=== PATIENT | female | born 1955 | race Caucasian/White ===

== ENCOUNTER 2021-03-17 16:58 | Inpatient (IN) | payer MEDICARE ==
[~2021-03-17] VITALS: Ht 167.6 cm; Wt 57.2 kg
--- NOTE | 2021-03-17 17:27 | NUR ---
Dr Olson at the bedside for MSE.
[2021-03-17] MEDS ORDERED: CHLO25CA22 PO (17:36)
[2021-03-17] MEDS ORDERED: TRAZ-182 PO (17:36)
[2021-03-17 17:47] LABS: HEMATOCRIT 35.3 % (31.2-41.9); MEAN CORPUSCULAR HEMOGLOBIN 34.4 uug (24.7-32.8); PLATELET COUNT (AUTO) 436 K/uL (179-408)
[2021-03-17 17:52] LABS: CARBON DIOXIDE 32 mmol/L (21-32); CHLORIDE 98 mmol/L (98-107); CREATININE 1.1 mg/dL (0.6-1.3); GLUCOSE 130 mg/dL (74-106); POTASSIUM 3.3 mmol/L (3.5-5.1); UREA NITROGEN, BLOOD 10 mg/dL (7-18)
[2021-03-17 17:58] LABS: ALANINE AMINOTRANSFERASE 67 U/L (14-59); ALKALINE PHOSPHATASE 76 U/L (50-136); ASPARTATE AMINOTRANSFERASE 48 U/L (15-37); BILIRUBIN,DIRECT 0.2 mg/dL (0.0-0.2); BILIRUBIN,TOTAL 0.5 mg/dL (0.2-1.0); ETHANOL < 3 MG/DL (0-0); TOTAL PROTEIN, SERUM 7.7 g/dL (6.4-8.2)
[2021-03-17 17:59] LABS: ACETAMINOPHEN < 2.0 ug/mL (10-30)
[2021-03-17 18:03] LABS: BAND % (MANUAL) 5 % (0-10); EOSINOPHILS % (MANUAL) 1 % (0-8); LYMPHOCYTES % (MANUAL) 24 % (20-40); MONOCYTES % (MANUAL) 21 % (2-10); NEUTROPHILS % (MANUAL) 49 % (42-75)
--- NOTE | 2021-03-17 18:15 | NUR ---
Pt is medically cleared to be admitted to MHU.
--- NOTE | 2021-03-17 18:22 | NUR ---
Pt able to walk to bathroom w/ steady gait.
[2021-03-17 18:50] VITALS: BP 113/77
[2021-03-17] MEDS ORDERED: MAGNESIUM HYDROXIDE 30 ML LIQUID UDC PO PRN (20:00)
[2021-03-17] MEDS ORDERED: MAG HYDROX/AL HYDROX/SIMETH 30 ML LIQUID UDC PO PRN (20:00)
[2021-03-17] MEDS: LORAZEPAM 0.5 MG TABLET PO PRN (20:22)
[2021-03-17] MEDS ORDERED: BLOOD SUGAR DIAGNOSTIC 1 EACH STRIP VI ONE (20:30)
--- NOTE | 2021-03-17 21:00 | NUR ---
ADMISSION NOTE: ADMITTED EARLIER JUST BEFORE CHANGE OF SHIFT A 65 YEARS OLD FEMALE TO [facility] ON A 5150 FOR DTS. HOLD WILL END ON 03/19/21 AT 1410. PER HOLD, PATIENT LIVES AT HOME ALONE. SHE WAS TAKEN TO [facility] BY SISTER D/T A FALL AND EXCESSIVE ETOH ABUSE ON 03/16/21. ONCE PATIENT WAS MEDICALLY CLEARED SHE WAS TRANSPORTED VIA AMBULANCE TO [facility] FOR ADMISSION TO MHU, PER HOLD, PATIENT REPORTED H/O DEPRESSION AND ANXIETY. ON EVALUATION, PT ENDORSE SI AND DESIRED TO . SHE IS ALSO EXPERIENCING 5 DAYS SOBRIETY. UPON ADMISSION, PATIENT NOTED A/O X 3 ABLE TO AMBULATE WITH SLOW BUT STEADY GAIT. SHE IS NOTED GUARDED BUT COOPERATIVE WITH ADMISSION PROCESS. ON FACE TO FACE ASSESSMENT, PATIENT REFLECTS WHAT IS WRITTEN IN THE HOLD. SHE WAS GIVEN HER ADVISEMENT WELL HER BOOKLET FOR PATIENT'S RIGHT ON MENTAL HEALTH FACILITIES. SHE APPEARS TO MINIMIZE HER SYMPTOMS, SHE STATED, "I DON'T FEEL SUICIDAL, I DON'T WANT TO , I AM JUST DEPRESSED BECAUSE I AM ALL ALONE IN MY HOUSE". PATIENT ALSO ADMITTED DRINKING ALCOHOL IN ORDER TO COPE WITH HER DEPRESSION. SHE STATED THAT SHE LAST HAD AN ALCOHOLIC BEVERAGE 5 DAYS AGO. PATIENT IS ABLE TO VERBALLY CFS. ON BODY ASSESSMENT, PATIENT PRESENTS WITH MULTIPLE FACIAL BRUISES (LEFT SIDE OF FOREHEAD AND LEFT ORBITAL AREA). IT WAS ALSO NOTED AND ABRASION ON RT KNEE AND MULTIPLE BRUISES ON LOWER RIGHT LEG ANTERIOR ASPECT AND LEFT FOREARM LATER ASPECT. PATIENT IS UNDER THE CARE OF DR. PATEL. SHE WAS NOTIFIED OF PT ADMISSION. WILL CONTINUE WITH Q15 MIN CHECKS.
[2021-03-17] MEDS: TEMAZEPAM 7.5 MG CAPSULE PO PRN (22:17)
[2021-03-17] MEDS ORDERED: POTASSIUM CHLORIDE 20 MEQ TAB.PRT.SR PO ONE (23:45)
--- NOTE | 2021-03-18 00:05 | NUR ---
PATIENT NOTED WITH K AT 3.3. DR OATES WAS NOTIFIED AND A NEW ORDER OBTAINED TO ADMINISTER KDUR 20mEq ONE TIME ORDER, ORDER NOTED AND CARRIED OUT. WILL CONTINUE TO MONITOR.
[2021-03-18 07:30] VITALS: BP 120/65
--- NOTE | 2021-03-18 08:35 | NUR ---
Social Work Note/Substance Abuse Intervention: Patient was provided with a brief substance abuse intervention and referred to [facility] ([phone]), [facility] ([phone]), and [facility] ([phone]) for alcohol abuse.
--- NOTE | 2021-03-18 08:35 | NUR ---
FIREARMS REPORT: Cheese Grader completed and submitted a [employer] firearms report for 5150 grave disability certification. A copy of report has been placed in patient chart.
--- NOTE | 2021-03-18 09:34 | NUR ---
SW Family Contact: This SW contacted patient's sister Delfina Houston ([phone]) to discuss treatment and discharge plan. Patient's sister Delfina Houston ([phone]) stated that she is the DPOA and will send this SW documents. Sister Delfina stated she would want pt to return back home upon discharge and pt would want to return back home upon discharge.
--- NOTE | 2021-03-18 09:34 | NUR ---
GEETHA Initial Discharge Plan: Patient lives home alone at [address] [place] [address]; ([phone]). This SW contacted patient's sister Delfina Houston ([phone]) to discuss treatment and discharge plan. Patient's sister Delfina Houston ([phone]) stated that she is the DPOA and will send this SW documents. Sister Delfina stated she would want pt to return back home upon discharge and pt would want to return back home upon discharge. GEETHA will work with the treatment team and family to coordinate proper discharge.
[2021-03-18] MEDS: LORAZEPAM 0.5 MG TABLET PO PRN ×2 (09:58→17:03)
--- NOTE | 2021-03-18 10:08 | NUR ---
DPOA Document: This SW received DPOA document from patient's sister Delfina Houston who is the DPOA of pt.
--- NOTE | 2021-03-18 11:34 | NUR ---
Pt noted quite forgetful. Excessively at nurses station, making multiple requests, often same requests she asked for 10 minutes ago. Requires frequent redirection.
--- NOTE | 2021-03-18 13:16 | NUR ---
SW Note: Pt constantly entering social workers office and asking the same questions. Pt appears to be forgetful. SW had to re-direct pt multiple times.
--- NOTE | 2021-03-18 14:54 | NUR ---
Coordination of Care: Patient will follow up (Primary Doctor) Dr. Mathew Blanco located at [address], [place] [address]; ([phone]) on Monday, April 19, 2021 at 1:00 PM and will monitor and provide psychotropic medications.
[2021-03-18 15:34] VITALS: BP 134/71
--- NOTE | 2021-03-18 15:34 | NUR ---
SW Individual Therapy: This SW met with patient' to discuss patient's presenting problem SI. Patient stated she is not suicidal and is depressed. Patient expressed that she is currently moving to an apartment and has been stressing about her move. She expressed to this SW that she is also stressed about her ex-boyfriend and wants to move on, she expressed "I have changed my life multiple times for him". This SW actively listened and provided emotional support. This SW encouraged pt to develop strength.
[2021-03-18] MEDS ORDERED: PAROXETINE HCL 20 MG TABLET PO ONE (18:00)
[2021-03-18] MEDS: TRAZODONE 50 MG TABLET PO SCH (20:13)
[2021-03-18 20:14] VITALS: BP 163/96
[2021-03-18] MEDS: TEMAZEPAM 7.5 MG CAPSULE PO PRN (22:58)
[2021-03-19 00:17] VITALS: BP 142/77
[2021-03-19] MEDS: LORAZEPAM 0.5 MG TABLET PO PRN ×3 (01:03→15:49)
[2021-03-19] MEDS: ACETAMINOPHEN 325 MG TABLET PO PRN (01:03)
--- NOTE | 2021-03-19 05:28 | NUR ---
Received patient at the nurses station last night asking for Tea. This casualty underwriter was able to have a meaningful conversation with the patient. The patient expressed that she "drinks everyday" and the reason her face is black and blue is from "Falling down drunk." The patient said [place] and " Ex boyfriend". Patient is lonely and wants to move.When asked, the patient denies having SI at this time. Many times during the night the patient was up out of the bed asking for things. Total sleep was only 3.15 hours. At one point the room mate was yelling at the patient. This was because during the night, this patient did not like the roommates snoring ,so she walked over and started shaking the bed. The patient is impulsive at times , forgetful and has poor insight and judgement. Assistant Front Desk Manager and staff are continuing to monitor patient for safety and provide reassurance and active listening when needed.
[2021-03-19 07:54] LABS: HEMATOCRIT 32.8 % (31.2-41.9); MEAN CORPUSCULAR HEMOGLOBIN 34.8 uug (24.7-32.8); MEAN CORPUSCULAR VOLUME 102.5 fL (75.5-95.3); PLATELET COUNT (AUTO) 404 K/uL (179-408)
[2021-03-19 08:03] VITALS: BP 110/62
[2021-03-19 08:09] LABS: BILIRUBIN,DIRECT 0.2 mg/dL (0.0-0.2); BILIRUBIN,TOTAL 0.4 mg/dL (0.2-1.0); MAGNESIUM 1.6 mg/dL (1.8-2.4); PHOSPHOROUS 3.3 mg/dL (2.5-4.9); POTASSIUM 3.3 mmol/L (3.5-5.1); TOTAL PROTEIN, SERUM 6.8 g/dL (6.4-8.2)
[2021-03-19 08:24] LABS: THYROID STIMULATING HORMONE 1.383 mIU/mL (0.358-3.740)
[2021-03-19] MEDS ORDERED: MAGNESIUM OXIDE 400 MG TABLET PO ONE (09:15)
[2021-03-19] MEDS ORDERED: POTASSIUM CHLORIDE 20 MEQ TAB.PRT.SR PO ONE (09:15)
[2021-03-19] MEDS: MULTIVITAMINS,THERAPEUTIC TABLET PO SCH (12:21)
[2021-03-19] MEDS: THIAMINE HCL 100 MG TABLET PO SCH (12:21)
[2021-03-19 16:44] VITALS: BP 153/78
[2021-03-19 18:40] LABS: LYMPHOCYTES % (MANUAL) 34 % (20-40); MONOCYTES % (MANUAL) 16 % (2-10); NEUTROPHILS % (MANUAL) 50 % (42-75)
[2021-03-19 19:54] VITALS: BP 101/56
[2021-03-19] MEDS: TRAZODONE 50 MG TABLET PO SCH (21:05)
[2021-03-20] MEDS: THIAMINE HCL 100 MG TABLET PO SCH (08:00)
[2021-03-20] MEDS: MULTIVITAMINS,THERAPEUTIC TABLET PO SCH (08:00)
[2021-03-20] MEDS: LORAZEPAM 0.5 MG TABLET PO PRN ×3 (08:07→20:07)
[2021-03-20 08:11] VITALS: BP 119/67
[2021-03-20 16:17] VITALS: BP 144/72
--- NOTE | 2021-03-20 19:06 | NUR ---
PT EASILY IRRITABLE, FORGETFUL, AND NEEDY AT TIMES. REQUIRES FREQUENT REDIRECTION. NO AGGRESSIVE OR COMBATIVE BEHAVIOR NOTED. ADMINISTERED ATIVAN REQUESTED FOR ANXIETY. DENIES SI AT THIS TIME.
--- NOTE | 2021-03-20 20:07 | NUR ---
Pt refused HS Paxil 20mg. States she only wants 10mg and will talk to doctor tomorrow.
[2021-03-20] MEDS ORDERED: PAROXETINE HCL 20 MG TABLET PO SCH (21:00)
[2021-03-21] MEDS: LORAZEPAM 0.5 MG TABLET PO PRN ×2 (06:35→18:41)
[2021-03-21 08:04] VITALS: BP 117/67
[2021-03-21] MEDS: THIAMINE HCL 100 MG TABLET PO SCH (08:23)
[2021-03-21] MEDS: MULTIVITAMINS,THERAPEUTIC TABLET PO SCH (08:23)
[2021-03-21] MEDS: PAROXETINE HCL 20 MG TABLET PO SCH (13:55)
--- NOTE | 2021-03-21 14:55 | NUR ---
Received patient alert and oriented x4,, compliant with Am medication ,seen and checked by Yaritza pagan and agree to take Paxil 20 mg ,encouraged to attendance group activity ,prn Ativan given as ordered.
[2021-03-21 15:25] VITALS: BP 111/75
[2021-03-21 21:12] VITALS: BP 151/82
[2021-03-21] MEDS: TRAZODONE 50 MG TABLET PO PRN (21:21)
[2021-03-22] MEDS: LORAZEPAM 0.5 MG TABLET PO PRN ×3 (00:35→15:58)
[2021-03-22] MEDS: ACETAMINOPHEN 325 MG TABLET PO PRN (00:35)
--- NOTE | 2021-03-22 05:55 | NUR ---
Received patient at the start of the shift asking for Trazodone. This engineering technical writer explained it was too early, but did administer to the patient when it was due. A few hours later this patient was up at the nurses station asking for a " Sleeping pill ". There were none ordered. Patient was anxious and received Ativan. The patient was needy and up and down all night. Sleep hours were 4.45. Patient denied SI this shift. Continuing to monitor.
[2021-03-22 07:30] VITALS: BP 142/83
[2021-03-22] MEDS: MULTIVITAMINS,THERAPEUTIC TABLET PO SCH (08:26)
[2021-03-22] MEDS: THIAMINE HCL 100 MG TABLET PO SCH (08:26)
--- NOTE | 2021-03-22 11:30 | NUR ---
SW Note: This SW met with patient and she would want to go back home with outpatient resources.
--- NOTE | 2021-03-22 11:39 | NUR ---
SW Coordination of Care: This SW contacted [facility] of [address], [place] [address] and spoke with [facility] intake department who stated that pt would have to contact and they will set pt up with the program. This SW number and information to pt.
--- NOTE | 2021-03-22 11:52 | NUR ---
SW Coordination of Care: This SW contacted [facility] of [address], [place] [address] and pt arranged an appointment for April 04 at 9:30AM for outpatient.
[2021-03-22] MEDS: PAROXETINE HCL 20 MG TABLET PO SCH (12:18)
--- NOTE | 2021-03-22 13:19 | NUR ---
SW Family Contact: This SW spoke with patient's sister Delfina Houston ([phone]) and stated that pt does not want to go to a inpatient program and prefers outpatient program. Delfina Houston was agreeable with this plan.
[2021-03-22 15:09] VITALS: BP 143/73
--- NOTE | 2021-03-22 15:25 | NUR ---
patient alert and oriented x4 ambulating in hallway, patient compliant with all medication.patient is needy and intrusive .encourage for group activity ,requested Ativan as needed,will continue close monitoring.
[2021-03-22 20:28] VITALS: BP 127/53
--- NOTE | 2021-03-22 21:00 | NUR ---
RECEIVED PATIENT IN HER ROOM IN BED. SHE IS NOTED SLEEPING BUT EASILY AROUSABLE. PATIENT NOTED A/O X 3 CALM AND PLEASANT UPON APPROACHED. HER MOOD IS DEPRESSED, AFFECT IS BLUNTED. PATIENT DENIED SI/HI/VA.AH SHE IS ABLE TO VERBALLY CFS. PO FLUIDS AND SNACKS WERE GIVEN. V/S STABLE. PATIENT IS REASSURED FOR HER SAFETY. SAFETY AND FALL PRECAUTION IN PLACE. WILL CONTINUE TO MONITOR.
[2021-03-22] MEDS: TRAZODONE 50 MG TABLET PO PRN (23:00)
[2021-03-23] MEDS: LORAZEPAM 0.5 MG TABLET PO PRN ×3 (00:41→20:47)
[2021-03-23 07:47] VITALS: BP 148/80
[2021-03-23 07:51] LABS: CREATININE 0.9 mg/dL (0.6-1.3); POTASSIUM 4.2 mmol/L (3.5-5.1)
[2021-03-23] MEDS: THIAMINE HCL 100 MG TABLET PO SCH (08:12)
[2021-03-23] MEDS: MULTIVITAMINS,THERAPEUTIC TABLET PO SCH (08:12)
--- NOTE | 2021-03-23 10:23 | NUR ---
patient c/o anxiety.ativan 1 mg po given per patient request.
--- NOTE | 2021-03-23 11:41 | NUR ---
GEETHA PC Hearing: Patient had 5250 probable cause hearing today and it released from her psychiatric hold. Patient is choosing to sign voluntary in order to arrange transportation back home tomorrow.
[2021-03-23] MEDS: PAROXETINE HCL 20 MG TABLET PO SCH (12:15)
[2021-03-23 16:21] VITALS: BP 133/86
[2021-03-23] MEDS: TRAZODONE 50 MG TABLET PO PRN (21:04)
[2021-03-23 21:14] VITALS: BP 152/83
[2021-03-24] MEDS: LORAZEPAM 0.5 MG TABLET PO PRN (03:32)
[2021-03-24] MEDS: ACETAMINOPHEN 325 MG TABLET PO PRN (03:32)
[2021-03-24 07:30] VITALS: BP 145/79
--- NOTE | 2021-03-24 08:04 | NUR ---
Discharge Note: Patient will return home upon discharge located at [address], [place] [address]; ([phone]). Transportation provided by [facility] arranged by coordinator Krystin ([phone]) between 12:30PM. Patients KATIA Houston (sister); ([phone]) is aware and agreeable with discharge. Patient is alert and oriented x4 and is able to independently take care of herself. Patient is aware and agreeable with discharge plan. Patient will follow up (Primary Doctor) Dr. Mathew Blanco located at [address], [place] [address]; ([phone]) on Monday, April 19, 2021 - 1:00 PM and will monitor and provide psychotropic medications. [facility] of [address], [place] [address] and pt arranged an appointment for April 04 at 9:30AM for outpatient Rehab. This SW provided list of psychiatry provided list of outpatient psychiatry: [facility] ([phone]), [facility]; ([phone]), [facility]re[facility]; ([phone]), [facility]cell[facility] Ruby; ([phone]), Raciel Andino; ([phone]), and Jaquan Enriquez ([phone]). This SW provided resources to [facility]; ([phone]), [facility] ([phone]), and [facility] ([phone]). Patient was referred to [place] [facility] ) and was referred to [facility] ([phone]) for alcohol abuse. Patient presents with euthymic mood and congruent affect.
[2021-03-24] MEDS: MULTIVITAMINS,THERAPEUTIC TABLET PO SCH (09:22)
[2021-03-24] MEDS: THIAMINE HCL 100 MG TABLET PO SCH (09:26)
[2021-03-24] MEDS: PAROXETINE HCL 20 MG TABLET PO SCH ×2 (12:10→13:13)
--- NOTE | 2021-03-24 13:04 | NUR ---
Discharge packet printed, instructions/teachings and prescriptions provided to pt. D/c papers signed. Lissett Hinton OUTPATIENT PHYSICAL THERAPIST ASSISTANT gave no new med orders for pt. Belongings reviewed with pt, pt signed list.
--- NOTE | 2021-03-24 13:32 | NUR ---
Pt picked up at 1330 by [facility], Ref # [id number]. Belongings and home meds sent with pt. Pt discharged in a safe, stable condition
== END 2021-03-24 13:51 | disposition home or self-care (01) | DRG 885 ==
LOC: ER 17:01 → GPS 18:33
PROVIDERS: ADMIT Psychiatry & Neurology Psychosomatic Medicine; ATTEND Student in an Organized Health Care Education/Training Program
DX: F33.2 Major depressive disorder, recurrent severe without psychotic features (principal); F23 Brief psychotic disorder; Z20.822 Contact with and (suspected) exposure to COVID-19; E87.6 Hypokalemia; E83.42 Hypomagnesemia; F10.20 Alcohol dependence, uncomplicated; Y90.0 Blood alcohol level of less than 20 mg/100 ml; F41.9 Anxiety disorder, unspecified; R74.01 Elevation of levels of liver transaminase levels; F39 Unspecified mood [affective] disorder
CPT/HCPCS: 36415; 70030-TC; 71045; 83735; 84100; 84443; 85025; 93005; 97161; A4663; G0480